=== PATIENT | male | born 1955 | race Caucasian/White ===

== ENCOUNTER 2016-11-16 09:44 | Outpatient (CLI) | payer OTHER ==
[2016-11-16 11:47] LABS: ALT (SGPT) 39 U/L (0-55); AST (SGOT) 39 U/L (5-34); Alkaline Phosphatase 50 U/L (40-150); Anion Gap 15 mmol/L (10-20); BUN (Urea Nitrogen) 14 mg/dL (8.4-25.7); Bilirubin, Direct 0.1 mg/dL (0.1-0.3); Bilirubin, Total 0.4 mg/dL (0.2-1.2); Calc. Creatinine Clearance 0 mL/min (70-130); Calcium 9.5 mg/dL (7.8-10.44); Carbon Dioxide 22 mmol/L (23-31); Chloride 107 mmol/L (98-107); Estimated GFR-MDRD Greater than 90; Protein, Total 8.1 g/dL (5.8-8.1)
[2016-11-16 11:48] LABS: Hemoglobin A1c 5.8 % (4.0-6.0)
[2016-11-16 12:02] LABS: #Eosinphils 0.1 thou/uL (0.0-0.7); #Lymphocytes 2.5 thou/uL (1.20-3.40); #Monocytes 0.8 thou/uL (0.11-0.59); #Neutrophils 2.6 thou/uL (1.40-6.50); %Basophils 0.5 % (0.0-1.0); %Eosinophils 1.1 % (0.0-10.0); %Monocytes 13.4 % (0.0-10.0); Hematocrit 48.8 % (42.0-52.0)
== END 2016-11-16 09:45 ==
LOC: NAVSJIPCSP 09:44
PROVIDERS: ATTEND Family Medicine
DX: Z12.5 Encounter for screening for malignant neoplasm of prostate (principal); Z79.899 Other long term (current) drug therapy; E78.5 Hyperlipidemia, unspecified; I10 Essential (primary) hypertension
CPT/HCPCS: 36415; 80048; 80061; 80076; 83036; 84443; 85025; G0103

== ENCOUNTER 2016-12-27 08:31 | Outpatient (CLI) | payer OTHER ==
[2016-12-27 12:48] LABS: ALT (SGPT) 32 U/L (0-55); AST (SGOT) 31 U/L (5-34); Alkaline Phosphatase 49 U/L (40-150); Bilirubin, Direct 0.1 mg/dL (0.1-0.3); Bilirubin, Total 0.4 mg/dL (0.2-1.2); Protein, Total 7.9 g/dL (5.8-8.1)
== END 2016-12-27 08:32 ==
LOC: NAVSJIPCSP 08:31
PROVIDERS: ATTEND Family Medicine
DX: R74.8 Abnormal levels of other serum enzymes (principal)
CPT/HCPCS: 36415; 80076

== ENCOUNTER 2020-12-18 09:04 | Emergency (ER) | payer OTHER ==
[2020-12-18] MEDS ORDERED: Fentanyl 100 MCG/2 ML VIAL ONE (09:58)
[2020-12-18] MEDS ORDERED: Lidocaine 1% (PF) 30 ML VIAL ONE (10:02)
[2020-12-18] MEDS ORDERED: Cephalexin 250 MG CAP ONE (11:38)
--- NOTE | 2020-12-18 11:45 | RAD ---
RIGHT FINGER 3 VIEWS: Date: 12/18/2020 HISTORY: Injury, right finger pain. FINDINGS/IMPRESSION: There is a mildly displaced, comminuted fracture involving the tuft of the distal phalanx. POS: [facility]
== END 2020-12-18 11:40 | disposition home or self-care (01) ==
LOC: NAV ERS 09:04
DX: S62.634B Displaced fracture of distal phalanx of right ring finger, initial encounter for open fracture (principal); E78.5 Hyperlipidemia, unspecified; I10 Essential (primary) hypertension; F17.290 Nicotine dependence, other tobacco product, uncomplicated; W31.89XA Contact with other specified machinery, initial encounter
CPT/HCPCS: 26755; 99001; J2001; J3010